=== PATIENT | male | born 1980 | race Two or more races ===

== ENCOUNTER 2023-08-31 11:42 | Emergency (ER) | payer OTHER ==
[~2023-08-31] VITALS: Ht 162.6 cm; Wt 79.4 kg
[2023-08-31] MEDS ORDERED: NABUMETONE750 MG PO (16:36)
[2023-08-31] MEDS ORDERED: CYCLOBENZAPRINE10 MG PO (16:36)
== END 2023-08-31 16:41 | disposition home or self-care (01) ==
LOC: ER 11:42
DX: S09.8XXA Other specified injuries of head, initial encounter (principal); W10.0XXA Fall (on)(from) escalator, initial encounter; Y93.89 Activity, other specified; Y92.89 Other specified places as the place of occurrence of the external cause; S69.82XA Other specified injuries of left wrist, hand and finger(s), initial encounter; S89.82XA Other specified injuries of left lower leg, initial encounter; S39.82XA Other specified injuries of lower back, initial encounter; S89.81XA Other specified injuries of right lower leg, initial encounter